=== PATIENT | male | born 1935 | race Caucasian/White ===

== ENCOUNTER 2016-12-27 18:33 | Emergency (ER) | payer MEDICARE, OTHER ==
[2016-12-27] MEDS ORDERED: OXYMETAZOLINE HCL 150 SPRAY BTL NS ONE (18:44)
--- NOTE | 2016-12-27 18:52 | ERNOTE ---
ENT HPI Date of Service: 12/27/16 Presenting Symptoms: nosebleed Time Seen by Provider: 12/27/16 18:34 Source: patient, family Exam Limitations: no limitations - Immun/Allergies/Home Medications Immunizations: IMMUNIZATION HX Immunizations Up to Date Yes History of Influenza Vaccine No Hx Pneumococcal Vaccination Yes Allergies/Adverse Reactions: Allergies Allergy/AdvReac Type Severity Reaction Status Date / Time atorvastatin calcium Allergy Intermediate Other Verified 01/20/14 12:03 [From Lipitor] Home Medications: HOME MEDICATIONS Aspirin/Calcium Carbonate/Mag [Aspirin Buffered 325 mg Tab] 325 mg PO DAILY [Last Taken Unknown] Isosorbide Dinitrate [Sorbitrate, Isordil] 20 mg PO TID 05/28/13 [Last Taken Unknown] Metoprolol Tartrate [Lopressor] 100 mg PO BID 05/28/13 [Last Taken Unknown] Ranitidine HCl [Zantac 75] 75 mg PO DAILY 06/10/13 [Last Taken Unknown] sulfaSALAzine [Sulfasalazine] 500 mg PO QID 06/10/13 [Last Taken Unknown] Multivit-Min/FA/Lycopene/Lut [Centrum Silver Tablet] 1 each PO DAILY 01/20/14 [ Last Taken Unknown] - History of Present Illness Narrative: Pt. comes in with c/o intermittent nose bleed for 10 minutes this morning that stopped with packing and then started again 5 minutes ago and has continued since. Pt. has had clear rhinorrhea recently due to weather change but denies any recent illness. Pt. denies any fevers, SOB, CP, NVD, nose pain but states taht he has had nosebleeds in the past and that they have resolved with pressure and then he wont have one for a few months between episodes. Pt. denies any dizziness or lightheadedness. Review of Systems - Review of Systems Constitutional: Present: no symptoms reported. Absent: recent illness, fever, chills, weakness, fatigue, malaise EYE: Present: no symptoms reported ENT: Present: nasal drainage - clear then became bloody after blowing his nose x 2 today Respiratory: Present: no symptoms reported Cardiology: Present: no symptoms reported. Absent: chest pain, edema Gastrointestinal/Abdominal: Present: no symptoms reported. Absent: nausea, vomiting, diarrhea Genitourinary: Present: no symptoms reported Musculoskeletal: Present: no symptoms reported. Absent: back pain, joint pain Skin: Present: no symptoms reported Neurological: Present: no symptoms reported. Absent: headache, dizziness/light- headedness, numbness, tingling All Other Systems: All systems neg except as marked - Patient's Past Medical History Patient History - Medical: Osteoarthritis, Other - epistaxis Patient History - Cardiac/Respiratory: Hypertension, Myocardial Infarction Patient History - Cancer: No Hx of Cancer Patient History - Surgical Procedures: Cardiac stent Patient History - Other: None - Social History Living Situations: significant other Abuse History: No History of abuse Psych History: No pertinent hx Smoking Status: Former smoker Have you smoked in the past 12 months: No Do you dip or chew tobacco: No Alcohol Use: none Drug Use: none - Immunizations Immunizations Up to Date: Yes Hx Pneumococcal Vaccination: Yes History of Influenza Vaccine: No Physical Exam - Physical Exam General Appearance: Present: wd/wn, alert, no apparent distress Head Exam: Present: normal inspection, no evidence of injury Eye Exam: Normal inspection: bilateral, PERRL: bilateral, EOMI: bilateral Ears, Nose, Throat: Present: sinus pain/drainage - epistaxis, other - nares with l nare mild erythema and dry patch where superficial vessel is bleeding Neck: Present: normal inspection, nontender, supple, full range of motion Respiratory: Present: no respiratory distress, normal breath sounds, no accessory muscle use, chest nontender, lungs clear Cardiovascular/Chest: Present: regular rate, rhythm, no murmur, normal peripheral pulses Neurological Exam: Present: alert, oriented, normal mood/affect, no motor/ sensory deficits Skin Exam: Present: normal color, warm/dry. Absent: pallor, skin rash ED Progress - Date and Time Seen: Date and Time: 12/27/16 20:37 Pt. nose still with mild bleeding despite applying afrin and pressure for 30 minutes and lowering his hypertension so inserted a 4.5 cm anterior rapid rhino without difficulty and with good staunching of blood. - Results and Orders Patient's Lab Results:: I have reviewed the patient's lab results. - Vital Signs Patient's Vital Signs:: I have reviewed the patient's vital signs. Vital Signs: Vital Signs 12/27/16 18:38 Temperature 36.6 C Pulse Rate 64 Respiratory 16 Rate Blood Pressure 169/111 O2 Sat by Pulse 95 Oximetry Departure Clinical Impression: Epistaxis - Departure Disposition: Home self-care Condition: Good Instructions: Nosebleed, [id number] Additional Instructions: Please return tomorrow for removal of rapid rhino.
[2016-12-27] MEDS ORDERED: OXYMETAZOLINE HCL 150 SPRAY BTL ONE (18:54)
[2016-12-27] MEDS ORDERED: CLONIDINE HCL 0.1 MG TABLET PO ONE (19:07)
[2016-12-27 19:14] LABS: Hematocrit 44.2 % (42.0-52.0); Hemoglobin 14.5 gm/dL (13.5-18.0); Mean Cell Volume 89.8 fl (78-100); Mean Corpuscular Hemoglobin 29.5 pg (27-31); Mean Corpuscular Hgb Conc 32.8 g/dl (32-36); Mean Platelet Volume 9.2 fl (6.0-9.5); Neutrophil # 3.8 K/mm3 (1.3-6.0); Neutrophil % 69.5 % (42-75.0); Platelet Count 199 K/mm3 (150-450); Red Blood Count 4.92 M/mm3 (4.7-6.0); White Blood Count 5.5 K/mm3 (4.0-10.5)
[2016-12-27] MEDS ORDERED: CLONIDINE HCL 0.1 MG TABLET ONE (19:22)
[2016-12-27 19:25] LABS: Prothrombin Time (Patient) 11.4 Seconds (9.4-11.4)
[2016-12-27 19:26] LABS: INR 1.1 INR (0.90-1.10); Partial Thrombolplastin Time 29.9 Seconds (24-32)
[2016-12-27 21:30] VITALS: BP 163/82
== END 2016-12-27 21:28 | disposition home or self-care (01) ==
LOC: ER 18:33
PROC: 2Y41X5Z Packing of Nasal Region using Packing Material (ICD-10-PCS; principal; 2016-12-27)
DX: R04.0 Epistaxis (principal); I25.2 Old myocardial infarction; Z87.891 Personal history of nicotine dependence; Z95.5 Presence of coronary angioplasty implant and graft

== ENCOUNTER 2016-12-28 18:22 | Emergency (ER) | payer MEDICARE, OTHER ==
[2016-12-28 19:48] VITALS: BP 152/74
== END 2016-12-28 20:38 | disposition home or self-care (01) ==
LOC: ER 18:22
DX: Z48.00 Encounter for change or removal of nonsurgical wound dressing (principal)

== ENCOUNTER 2017-01-06 03:06 | Emergency (ER) | payer MEDICARE, OTHER ==
[2017-01-06] MEDS ORDERED: DILTIAZEM HCL 5 MG/ML VIAL IV ONE ×2 (03:13→03:17)
[2017-01-06] MEDS ORDERED: DILTIAZEM HCL 125 MG in DEXTROSE 5 % IN WATER 100 ML IV PRN ×2 (03:21)
--- NOTE | 2017-01-06 03:23 | ERNOTE ---
Chest Pain/Cardiac HPI Chief Complaint: Chest Pain Time Seen by Provider: 01/06/17 03:20 Source: patient, family, RN notes reviewed Exam Limitations: no limitations Immunizations: IMMUNIZATION HX Immunizations Up to Date Yes History of Influenza Vaccine Yes Hx Pneumococcal Vaccination Yes Allergies/Adverse Reactions: Allergies atorvastatin calcium [From Lipitor] Allergy (Intermediate, Verified 01/20/14 12: 03) Other Stiffness, decreased ability to ambulate Home Medications: HOME MEDICATIONS Aspirin/Calcium Carbonate/Mag [Aspirin Buffered 325 mg Tab] 325 mg PO DAILY [Last Taken Unknown] Isosorbide Dinitrate [Sorbitrate, Isordil] 20 mg PO TID 05/28/13 [Last Taken Unknown] Metoprolol Tartrate [Lopressor] 100 mg PO BID 05/28/13 [Last Taken Unknown] Ranitidine HCl [Zantac 75] 75 mg PO DAILY 06/10/13 [Last Taken Unknown] sulfaSALAzine [Sulfasalazine] 500 mg PO QID 06/10/13 [Last Taken Unknown] Multivit-Min/FA/Lycopene/Lut [Centrum Silver Tablet] 1 each PO DAILY 01/20/14 [ Last Taken Unknown] Narrative: Patient comes in complaining of chest pain all day yesterday, became much worse tonight, now is crushing chest pain with right arm pain. Patient's spouse tried to get him to come to the ED yesterday, multiple times, but he kept refusing. Timing: constant, getting worse Severity/Quality: severe, pressure - like someone sitting on his chest Location: substernal Chest Pain Radiation: arms Activities at Onset: rest Modifying Factors - Improves: Present: nothing Modifying Factors - Worsens: Present: exercise, movement Nitro Today/Relief: no nitro taken today Review of Systems - Review of Systems Constitutional: Present: weakness, fatigue. Absent: recent illness, fever, chills EYE: Present: no symptoms reported ENT: Present: no symptoms reported Respiratory: Absent: shortness of breath, cough Cardiology: Present: chest pain, palpitations Gastrointestinal/Abdominal: Absent: nausea, vomiting, diarrhea Genitourinary: Present: no symptoms reported Musculoskeletal: Present: no symptoms reported Skin: Present: no symptoms reported Neurological: Present: anxiety Endocrine: Present: no symptoms reported Hematologic/Lymphatic: Present: no symptoms reported Psych: Present: no symptoms reported - Patient's Past Medical History Patient History - Medical: Osteoarthritis, Other Patient History - Cardiac/Respiratory: Coronary Heart Disease, Hypertension, Myocardial Infarction Patient History - Cancer: No Hx of Cancer Patient History - Surgical Procedures: Cardiac stent Patient History - Other: None - Social History Living Situations: spouse Abuse History: No History of abuse Psych History: No pertinent hx Smoking Status: Former smoker Alcohol Use: none Drug Use: none - Immunizations Immunizations Up to Date: Yes Hx Pneumococcal Vaccination: Yes History of Influenza Vaccine: Yes Physical Exam - Physical Exam General Appearance: Present: wd/wn, alert, moderate distress, severe distress, anxious Head Exam: Present: normal inspection, no evidence of injury Eye Exam: Normal inspection: bilateral, PERRL: bilateral, EOMI: bilateral Ears, Nose, Throat: Present: normal ENT inspection Neck: Present: normal inspection, nontender Respiratory: Present: no respiratory distress, normal breath sounds, no accessory muscle use, chest nontender, lungs clear Cardiovascular/Chest: Present: tachycardia, irregularly irregular Gastrointestinal/Abdominal: Present: normal bowel sounds, nontender, nondistended, soft Extremity Exam: Present: normal inspection, non-tender, normal range of motion, no edema Neurological Exam: Present: alert, oriented, normal mood/affect ED Progress - Results and Orders Patient's Lab Results:: I have reviewed the patient's lab results. Results and Orders: Laboratory Tests 01/06/17 01/06/17 03:35 03:35 WBC 8.2 RBC 4.13 L Hgb 12.0 L Hct 36.8 L MCV 89.1 MCH 29.1 MCHC 32.6 RDW 13.9 Plt Count 203 MPV 9.1 Immature Gran % (Auto) 0.70 H Immature Gran # (Auto) 0.06 H Neutrophils % 67.7 Lymphocytes % 14.1 L Monocytes % 15.3 H Eosinophils % 1.7 Basophils % 0.5 Nucleated RBC % 0.0 Neutrophils # 5.5 Lymphocytes # 1.2 L Monocytes # 1.3 H Eosinophils # 0.1 Absolute Basophils 0.0 Sodium 137 Plasma Sodium 138 Potassium 3.4 D Chloride 100 Carbon Dioxide 27.6 Anion Gap 12.8 BUN 25 H Creatinine 1.39 Est GFR (Non-Af Amer) 52 L BUN/Creatinine Ratio 18.0 Random Glucose 147 H Calcium 9.2 Calcium Adj for Albumin 9.4 Total Bilirubin 0.4 AST 30 ALT 20 Alkaline Phosphatase 83 Troponin I Less than 0.017 B-Natriuretic Peptide 1103 H Total Protein 7.6 Albumin 3.3 L - Vital Signs Patient's Vital Signs:: I have reviewed the patient's vital signs. Vital Signs: Vital Signs 01/06/17 01/06/17 03:11 03:18 Temperature 37.2 C Pulse Rate 157 H 170 H Respiratory 26 H Rate Blood Pressure 173/91 173/91 O2 Sat by Pulse 97 Oximetry - EKG EKG: atrial fibrillation - and rate of 163 bpm, done at 03:10., ST depression EKG read: Interp. by me EKG Comments: Second ECG done at 04:16 showed atrial fibrillation with rapid ventricular response with aberrant conduction or ventricular premature complexes. Possible lateral ischemia with moderate T-wave abnormality. Rate is 108 bpm. - X-Ray X-Ray #1 X-Ray: chest Interpretation: Interp. by me X-ray Comments: Compared to view done on 06/10/2013. Cardiomegaly, changed from previous although this is a portable view. No obvious infiltrate, no bony abnormalities noted. - Progress/Reassessment Chief Complaint: Chest Pain Progress:: Unchanged Progress Note-Subjective: 01/06/17 04:45 I called and spoke with Toni Barroso MD at [facility] in [place], [place]. We reviewed patient's presentation, labs, CXR and EKGs. He agreed to accept the patient for transfer to his facility for further evaluation and treatment. 01/06/17 04:53 Prior to arranging transfer, patient was given Cardizem 20 mg IV slow push to treat his atrial fibrillation with rapid ventricular response. Patient's heart rate came down to 100, but his blood pressure bottomed out, he became unresponsive for about 2 minutes and sweaty. He then perked up, his blood pressure came up to a systolic of 100 and patient woke up and was able to talk with us. His heart rate came back up, going to the 130's-140's. I decided to give him Lopressor 5 mg IV this time, which patient tolerated much better. His first troponin came back negative. EMS have been here and picked the patient up for transfer. Departure Clinical Impression: Atrial fibrillation with rapid ventricular response Chest pain Qualifiers: Chest pain type: chest pain due to myocardial ischemia Ischemic chest pain type : unstable angina pectoris Qualified Code(s): I20.0 - Unstable angina - Departure Disposition: [facility] Condition: Serious
[2017-01-06 03:44] LABS: Hematocrit 36.8 % (42.0-52.0); Mean Cell Volume 89.1 fl (78-100); Mean Corpuscular Hemoglobin 29.1 pg (27-31); Mean Corpuscular Hgb Conc 32.6 g/dl (32-36); Mean Platelet Volume 9.1 fl (6.0-9.5); Neutrophil # 5.5 K/mm3 (1.3-6.0); Neutrophil % 67.7 % (42-75.0); Platelet Count 203 K/mm3 (150-450); Red Blood Count 4.13 M/mm3 (4.7-6.0); Red Cell Distribution Width 13.9 % (11.5-14.0); White Blood Count 8.2 K/mm3 (4.0-10.5)
[2017-01-06 04:03] LABS: ALT 20 U/L (19-67); AST 30 U/L (0-48); Albumin * 3.3 gm/dl (3.4-5.0); Alkaline Phosphatase * 83 U/L (50-170); Anion Gap 12.8 mmol/L (6.8-13.8); BNP * 1103 pg/mL (5-650); Bilirubin, Total 0.4 mg/dL (0.0-1.1); Blood Urea Nitrogen 25 mg/dL (6-23); Ca. Corrected For Albumin 9.4 mg/dL (8.4-10.2); Calcium * 9.2 mg/dL (7.9-10.9); Carbon Dioxide 27.6 mmol/L (24-32.6); Chloride 100 mmol/L (97-106); Glucose * 147 mg/dL (70-110); Potassium 3.4 mmol/L (3.4-4.6); Sodium 137 mmol/L (132-142); Total Protein 7.6 gm/dL (6.2-8.2)
[2017-01-06 04:04] LABS: Troponin I Less than 0.017 ng/ml (0.00-0.10)
[2017-01-06] MEDS ORDERED: METOPROLOL TARTRATE 1 MG/ML AMPUL IV ONE ×2 (04:04→04:06)
[2017-01-06 04:28] VITALS: BP 117/70
== END 2017-01-06 04:41 | disposition short-term general hospital (02) ==
LOC: ER 03:06
DX: I48.91 Unspecified atrial fibrillation (principal); R00.0 Tachycardia, unspecified; I20.0 Unstable angina; M19.90 Unspecified osteoarthritis, unspecified site; I25.2 Old myocardial infarction; I10 Essential (primary) hypertension

== ENCOUNTER 2017-01-09 21:10 | Emergency (ER) | payer MEDICARE, OTHER ==
--- NOTE | 2017-01-09 21:31 | ERNOTE ---
Abdominal HPI - General Chief Complaint: Abdominal Pain Time Seen by Provider: 01/09/17 21:27 Source: patient, family Exam Limitations: no limitations - Immun/Allergies/Home Medications Immunizatons: IMMUNIZATION HX Immunizations Up to Date Yes History of Influenza Vaccine No Hx Pneumococcal Vaccination Yes Allergies/Adverse Reactions: Allergies atorvastatin calcium [From Lipitor] Allergy (Intermediate, Verified 01/09/17 21: 20) Other Stiffness, decreased ability to ambulate Home Medications: HOME MEDICATIONS Aspirin/Calcium Carbonate/Mag [Aspirin Buffered 325 mg Tab] 325 mg PO DAILY [Last Taken Unknown] Isosorbide Dinitrate [Sorbitrate, Isordil] 20 mg PO TID 05/28/13 [Last Taken Unknown] Metoprolol Tartrate [Lopressor] 100 mg PO BID 05/28/13 [Last Taken Unknown] Ranitidine HCl [Zantac 75] 75 mg PO DAILY 06/10/13 [Last Taken Unknown] sulfaSALAzine [Sulfasalazine] 500 mg PO QID 06/10/13 [Last Taken Unknown] Multivit-Min/FA/Lycopene/Lut [Centrum Silver Tablet] 1 each PO DAILY 01/20/14 [ Last Taken Unknown] Polyethylene Glycol 3350 [Glycolax] 17 gm PO DAILY PRN #527 gm 01/10/17 [Last Taken Unknown] - History of Present Illness Narrative: Patient with 3 day history of constipation, presents tonight with worsening abdominal pain. Tried Magnesium citrate, however that didn't appear to work well , he had a small bowel movement and is still in pain. Timing: getting worse, intermittent Quality: severe, cramping Activities at Onset: emotional stress Modifying Factors - (Improves): Present: defecating Modifying Factors - (Worsens): Present: coughing, movement, exercise. Absent: analgesics, antacids, breathing, eating Associated Symptoms: Present: denies symptoms - Patient's Past Medical History Patient History - Medical: Osteoarthritis, Other Patient History - Cardiac/Respiratory: Coronary Heart Disease, Hypertension, Myocardial Infarction Patient History - Cancer: No Hx of Cancer Patient History - Surgical Procedures: Cardiac stent Patient History - Other: None - Social History Living Situations: home Abuse History: No History of abuse Psych History: No pertinent hx Smoking Status: Former smoker Alcohol Use: none Drug Use: none - Immunizations Immunizations Up to Date: Yes Hx Pneumococcal Vaccination: Yes History of Influenza Vaccine: No Physical Exam - Physical Exam General Appearance: Present: wd/wn, moderate distress, obese Head Exam: Present: normal inspection, no evidence of injury Eye Exam: Normal inspection: bilateral, PERRL: bilateral, EOMI: bilateral Ears, Nose, Throat: Present: normal ENT inspection Neck: Present: normal inspection, nontender Respiratory: Present: no respiratory distress, normal breath sounds, no accessory muscle use, chest nontender, lungs clear Cardiovascular/Chest: Present: no murmur, irregularly irregular Gastrointestinal/Abdominal: Present: normal bowel sounds, soft, tenderness Back Exam: Present: normal inspection, normal range of motion Extremity Exam: Present: normal inspection, normal range of motion, no edema Neurological Exam: Present: alert, oriented, normal mood/affect, no motor/ sensory deficits Skin Exam: Present: normal color, warm/dry ED Progress - Vital Signs Vital Signs: Vital Signs 01/09/17 01/09/17 21:13 21:25 Temperature 36.9 C 36.9 C Pulse Rate 101 H 101 H Respiratory 20 20 Rate Blood Pressure 115/90 115/90 O2 Sat by Pulse 96 96 Oximetry - Progress/Reassessment Chief Complaint: Abdominal Pain Progress:: Improved Progress Note-Subjective: 01/10/17 00:42 Patient with a large amount of initially hard then loose brown stools. He feels much better, still having some cramping. I counseled patient that magnesium citrate can cause a lot of abdominal cramping. Will give a script for Miralax. Departure Clinical Impression: Constipation by delayed colonic transit - Departure Disposition: Home self-care Condition: Good Instructions: Constipation, Adult, [id number] Referrals: Isaac Duke DO [Primary Care Provider] - (5-7 days, sooner if no improvement) Prescriptions: Polyethylene Glycol 3350 [Glycolax] 17 gm PO DAILY PRN #527 gm PRN Reason: Constipation
[2017-01-09 23:29] VITALS: BP 129/75
== END 2017-01-10 00:51 | disposition home or self-care (01) ==
LOC: ER 21:10
DX: K59.01 Slow transit constipation (principal); M19.90 Unspecified osteoarthritis, unspecified site; I25.2 Old myocardial infarction; I10 Essential (primary) hypertension